=== PATIENT | female | born 1940 | race Caucasian/White ===

== ENCOUNTER 2017-12-07 04:49 | Inpatient (IN) | payer MEDICARE, OTHER ==
[~2017-12-07] VITALS: Ht 165.1 cm; Wt 78.9 kg
[2017-12-07 04:49] VITALS: BP 126/62
[2017-12-07] MEDS ORDERED: ASPIR 8181 MG PO (04:56)
[2017-12-07] MEDS ORDERED: ZESTRIL10 MG PO (04:56)
[2017-12-07 05:17] LABS: ABSOLUTE LYMPHOCYTES 0.9 thou/uL (0.8-5.3); ABSOLUTE MONOCYTES 0.2 thou/uL (0.0-1.2); ABSOLUTE NEUTROPHILS 3.7 thou/uL (1.6-8.1); BASOPHILS 0.7 %; EOSINOPHILS 0.4 %; HEMOGLOBIN 7.7 gm/dL (12.0-15.0); LYMPHOCYTES 18.2 %; MCH 31.1 pg (26.0-34.0); MCHC 33.6 g/dL (28.0-37.0); MCV 92.4 fL (80.0-100.0); MPV 7.4 fl. (7.2-11.1); NUCLEATED RBCS 0 /100WBC; PLATELET COUNT* 176 thou/uL (150-400); POLYS 75.7 %; RBC 2.49 mil/uL (4.20-5.00); RDW-CV 13.1 % (10.5-14.5); WBC 4.8 thou/uL (4.0-11.0)
[2017-12-07 05:27] LABS: ANION GAP 6 mmol/L (7-16); BUN 28 mg/dL (7-18); CALCIUM 7.6 mg/dL (8.5-10.1); CHLORIDE 111 mmol/L (98-107); CO2 26 mmol/L (21-32); CREATININE 0.9 mg/dL (0.6-1.3); GLUCOSE 112 mg/dL (70-99); SODIUM 143 mmol/L (136-145)
[2017-12-07 05:34] LABS: ALBUMIN 2.2 g/dL (3.4-5.0); ALKALINE PHOSPHATASE 46 U/L (46-116); SGOT 15 U/L (15-37); SGPT 13 U/L (30-65); TOTAL BILIRUBIN 0.2 mg/dL (<0.1-1.0); TOTAL PROTEIN 4.6 g/dL (6.4-8.2); TROPONIN-I LEVEL <0.06 ng/mL (<0.06)
[2017-12-07 06:10] LABS: URINE BILIRUBIN NEGATIVE (Negative); URINE BLOOD 3+ (Negative); URINE CLARITY CLEAR; URINE COLOR YELLOW; URINE GLUCOSE-RANDOM NEGATIVE (Negative); URINE KETONES NEGATIVE (Negative); URINE LEUKOCYTES-REFLEX 1+ (Negative); URINE NITRITE-REFLEX NEGATIVE (Negative); URINE PROTEIN NEGATIVE (Negative); URINE UROBILINOGEN 0.2 E.U./dl (0.2-1.0)
[2017-12-07 06:22] LABS: SQUAMOUS 0-3 Few /LPF (0-3)
[2017-12-07 06:23] LABS: BACTERIA-REFLEX >30 Many /HPF (None Seen); CASTS None Seen /LPF (None Seen); CRYSTALS None Seen /LPF (None Seen); MUCUS 0-3 Light strn/LPF (None Seen); TRANSITIONAL EPITHEL CELL 0-3 Few /LPF (None Seen); URINE RBC 0-2 Rare /HPF (0-2); URINE WBC-REFLEX 6-15 Few /HPF (0-5)
[2017-12-07 08:03] VITALS: BP 123/57
[2017-12-07 11:34] VITALS: BP 123/57
[2017-12-07 11:38] LABS: % SATURATION 22 % (20-39); IRON 48 ug/dL (50-175)
--- NOTE | 2017-12-07 12:11 | EKG ---
[place] [address] ELECTROCARDIOGRAM REPORT Name: SANTY ELLSWORTH Room: [place] [address] ADM IN .R.#: [id number] Admission: 12/07/17 Attend Phys: Cinthya Victor MD Discharge: Date of : 44 Report #: [id number] THIS REPORT FOR: //name// [facility] ED Test Date: 2017-12-07 Test Time: 04:55:44 Pat Name: SANTY ELLSWORTH Department: Room: Gender: F Private Watchman: : 1940 Requested By: Digna Spears Order Number: [id number] MD: James Salazar Measurements Intervals [place] Rate: 74 P: 52 IN: 117 QRS: -13 QRSD: 80 T: 37 QT: 375 QTc: 416 Interpretive Statements Sinus rhythm nonspecific st changes Borderline short IN interval Probable left atrial enlargement consider Inferior infarct, old No previous ECG available for comparison Electronically Signed On 12-07-2017 12:11:13 CDT by James Salazar [email or web address] <ELECTRONICALLY SIGNED> By: James Salazar MD, [facility] 12/07/17 1211 0455 0455 James Salazar MD, [facility] /EPI
[2017-12-07 15:51] VITALS: BP 147/51
[2017-12-07 20:00] VITALS: BP 127/60
[2017-12-08] VITALS (7 sets, daily range): BP systolic 126–160; BP diastolic 61–77
[2017-12-08 05:07] LABS: ABSOLUTE LYMPHOCYTES 1.2 thou/uL (0.8-5.3); ABSOLUTE MONOCYTES 0.2 thou/uL (0.0-1.2); ABSOLUTE NEUTROPHILS 2.9 thou/uL (1.6-8.1); BASOPHILS 0.7 %; EOSINOPHILS 0.5 %; HEMATOCRIT 21.8 % (37.0-47.0); HEMOGLOBIN 7.4 gm/dL (12.0-15.0); LYMPHOCYTES 26.9 %; MCH 31.6 pg (26.0-34.0); MCHC 34.2 g/dL (28.0-37.0); MCV 92.4 fL (80.0-100.0); MPV 7.9 fl. (7.2-11.1); NUCLEATED RBCS 0 /100WBC; PLATELET COUNT* 191 thou/uL (150-400); POLYS 66.9 %; RBC 2.35 mil/uL (4.20-5.00); WBC 4.3 thou/uL (4.0-11.0)
[2017-12-08 05:23] LABS: CALCIUM 8.2 mg/dL (8.5-10.1); CREATININE 0.9 mg/dL (0.6-1.3); POTASSIUM 3.9 mmol/L (3.5-5.1)
[2017-12-08] MEDS ORDERED: PROTONIX40 M1 PO (14:28)
[2017-12-08] MEDS ORDERED: CARAFATE 1 GM TA1 G1 PO (14:29)
[2017-12-08 16:38] LABS: HEMOGLOBIN 9.5 gm/dL (12.0-15.0)
--- NOTE | 2017-12-11 16:18 | CON ---
[address] [address] CONSULTATION Name: SANTY ELLSWORTH Room: [address] IN M.R.#: [id number] Admission: 12/07/17 Attend Phys: Cinthya Victor MD Discharge: 12/08/17 Date of : 44 Report #: [id number] THIS REPORT FOR: //name// CC: Michael Victor DICTATED BY: Liya Steve [facility] DATE OF SERVICE: 12/07/2017 Please note at the time of this dictation, the patient was seen and physically examined by myself. REASON FOR CONSULTATION: Nausea, vomiting, hematemesis. HISTORY OF PRESENT ILLNESS: This 77-year-old female who presented to the Emergency Room after being outside yesterday mowing. She had a semi-syncopal episode and she has had visual spotting at that time. This morning, when she got up to go to the bathroom, she had another syncopal episode and she was found lying on the floor. Upon their arrival, she was very pale, diaphoretic, and weak. At that time she had epistaxis of which she was unaware of. She also had nausea and vomiting and in the trash can was noted to have bright red blood. The patient does not recall much of this. The patient states she has not had any issues with nausea, vomiting, fever or chills until this episode this morning of nausea and vomiting. She denies any loss of appetite. She has never been told she is anemic. She has never had an upper scope or any issues with difficulty swallowing or acid reflux. She denies any abdominal pain. She states her bowels move daily, soft and formed. She has not noticed any bright red blood or any melena. The patient states she did have a colonoscopy 30+ years ago and it was completely normal. ALLERGIES: No known drug allergies. MEDICATIONS: From home, she takes an aspirin daily and lisinopril. PAST MEDICAL HISTORY: Hypertension. PAST SURGICAL HISTORY: Negative. FAMILY HISTORY: Negative for any GI or female cancers. SOCIAL HISTORY: Denies any alcohol, tobacco or illegal drug use. REVIEW OF SYSTEMS: Twelve-point review of systems is essentially negative except what is [place] [address] CONSULTATION Name: SANTY ELLSWORTH Room: [address] IN [facility].#: [id number] Admission: 12/07/17 Attend Phys: Cinthya Victor MD Discharge: 12/08/17 Date of : 44 Report #: [id number] PHYSICAL EXAMINATION: VITAL SIGNS: Temperature 36.3, pulse 73, respirations 16, blood pressure 123/57. HEART: Regular rate and rhythm. LUNGS: Clear. ABDOMEN: Soft, positive bowel sounds in all 4 quadrants with no masses or tenderness noted. NEUROLOGIC: The patient is alert and oriented x 3. LABORATORY DATA: Hemoglobin on admission was 7.7, hematocrit 23, white count is 4.8, platelets 176. Sodium 143, potassium 4, chloride 111, CO2 of 26, BUN is 28, creatinine 0.9, glucose is 112 and her GFR is 61. Her LFTs are completely normal. It was also noted that she had 3+ blood in her urine. Please note also we have no baseline as to what her hemoglobin has been, but she denies ever being anemic. IMPRESSION: 1. Nausea and vomiting that has resolved. 2. Hematemesis, none since admission. 3. Acute anemia. PLAN: 1. EGD today with Dr. Rios. 2. Last colon was 30 years ago. 3. The patient will need a colonoscopy to evaluate her anemia further. 4. Labs, ferritin, iron studies and B12 with a CBC in the a.m. 5. Further recommendations to be made once the EGD has been performed. Thank you for allowing us to participate in this patient's care. Please do not hesitate to call with any questions in regard to this consult. ADDENDUM I have personally seen and examined and reviewed labs and imaging studies. The patient with no previous history of anemia, who presents with acute hematemesis and anemia with hemoglobin of 7.5. She is hemodynamically stable. She reports that hematemesis was after having several bouts of nausea and vomiting. She denies taking any blood thinners except aspirin. She also reports that she never had upper endoscopy and her last colonoscopy was about 30 years ago. We will go ahead and perform an upper endoscopy to further evaluate her anemia and recent history of hematemesis. The patient [place] [address] CONSULTATION Name: SANTY ELLSWORTH Link Room: [address] IN [facility]#: [id number] Admission: 12/07/17 Attend Phys: Cinthya Victor MD Discharge: 12/08/17 Date of : 44 Report #: [id number] point. We will make further recommendation once the endoscopic evaluation is complete. <ELECTRONICALLY SIGNED> By: Stephon Rios MD 12/11/17 1618 1101 [id number] Rios MD /nt
--- NOTE | 2017-12-11 16:18 | CON ---
[address] [address] CONSULTATION Name: SANTY ELLSWORTH Room: [address] IN M.R.#: [id number] Admission: 12/07/17 Attend Phys: Cinthya Victor MD Discharge: 12/08/17 Date of : 44 Report #: [id number] THIS REPORT FOR: //name// CC: Michael Victor DATE OF SERVICE: 12/07/2017 ADDENDUM I have personally seen and examined and reviewed labs and imaging studies. The patient with no previous history of anemia, who presents with acute hematemesis and anemia with hemoglobin of 7.5. She is hemodynamically stable. She reports that hematemesis was after having several bouts of nausea and vomiting. She denies taking any blood thinners except aspirin. She also reports that she never had upper endoscopy and her last colonoscopy was about 30 years ago. We will go ahead and perform an upper endoscopy to further evaluate her anemia and recent history of hematemesis. The patient will need a colonoscopy at some point. We will make further recommendation once the endoscopic evaluation is complete. <ELECTRONICALLY SIGNED> By: Setphon Rios MD 12/11/17 1618 1329 [id number] Rios MD /nt
--- NOTE | 2017-12-11 16:18 | PROC ---
[address] [address] PROCEDURE REPORT Name: SANTY ELLSWORTH Room: [address] IN M.R.#: [id number] Admission: 12/07/17 Attend Phys: Cinthya Victor MD Discharge: 12/08/17 Date of : 42 Report #: [id number] THIS REPORT FOR: //name// CC: Michael Victor DATE OF SERVICE: 12/07/2017 PROCEDURE PERFORMED: EGD with biopsy. INDICATION FOR PROCEDURE: Hematemesis. The patient also is anemic with hemoglobin of 7.5. PHYSICAL EXAMINATION: VITAL SIGNS: Reveals normal vitals. LUNGS: Clear. CARDIOVASCULAR: Regular. ABDOMEN: Soft and mildly tender to palpation in the epigastric region. Bowel sounds are positive. DESCRIPTION OF PROCEDURE: An informed consent was obtained from the patient including the nature, risks, benefits and alternatives described. The patient was placed in the left lateral decubitus position with oximetry, blood pressure and cardiac monitoring. IV sedation was titrated with medication to effect. The [employer] video upper endoscope was then advanced under direct vision into the esophagus, which appeared completely normal. There was no evidence of esophagitis, rings, webs or strictures. No evidence for Miller's mucosa was noted. The stomach was then entered, insufflated and examined in its entirety and revealed a normal-appearing antrum and body as well as the cardia and fundus on retroflex examination. There was small to moderate sized hiatal hernia. The pylorus was widely patent, revealing a normal duodenal bulb and distal duodenum. 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 The edges of the ulcer were biopsied to rule out dysplasia. Scope and air were then withdrawn, and the patient was sent to the recovery room in stable condition. Thank you for allowing me to participate in the care of this patient. IMPRESSION: 1. Hiatal hernia, small to moderate. 2. Submucosal lesion measuring 2 cm, which is ulcerated and is in the proximal greater curvature of the body of the stomach. The [place] [address] PROCEDURE REPORT Name: SANTY ELLSWORTH Room: [address] [facility] IN .R.#: [id number] Admission: 12/07/17 Attend Phys: Cinthya Victor MD Discharge: 12/08/17 Date of : 44 Report #: [id number] RECOMMENDATION: We will follow up biopsy results and schedule the patient for endoscopic ultrasound. Meanwhile, we will put her on double dose of Carafate and Protonix. <ELECTRONICALLY SIGNED> By: Stephon Rios MD 12/11/17 1618 1416 0036Clintonid Jaden Rios MD /nt
--- NOTE | 2017-12-12 14:13 | CON ---
[address] [address] CONSULTATION Name: SANTY ELLSWORTH Room: [address] IN M.R.#: [id number] Admission: 12/07/17 Attend Phys: Cinthya Victor MD Discharge: 12/08/17 Date of : 42 Report #: [id number] THIS REPORT FOR: //name// CC: Michael Victor DATE OF SERVICE: 12/07/2017 HISTORY OF PRESENT ILLNESS: The patient is a 77-year-old white female who I was asked to see in the hospital today after she had a lightheaded spell. As you recall, patient has no history of heart disease. She recently was noted to have high blood pressure. Dr. Gaston in August started her on metoprolol and aspirin a day. However, she complained of fatigue. She also had occasional chest pain. She saw my partner, Dr. Leblanc, in the cardiology clinic. He recommended a nuclear stress test that was done in September. This showed an inferior defect suggesting diaphragmatic attenuation. Ejection fraction 70%. This was felt to be low risk for cardiac events. Dr. Leblanc switched her from metoprolol to lisinopril because of fatigue. The patient says she has done well since that time. Yesterday, she mowed the entire yard and did some weeding. This morning, she got up to go to the bathroom about 4:00 in the morning. She felt lightheaded and fell to the ground. She vomited blood. She was brought by ambulance here to [place]. She is noted to be anemic. She underwent an EGD that apparently showed evidence of a tumor. She has now been told that she has to have the tumor resected. She denies any history of chest tightness, dyspnea on exertion, palpitations, edema. She has had no recent fever. PAST MEDICAL HISTORY: Otherwise significant for tonsillectomy. She has a history of hypertension, no history of diabetes, hyperlipidemia. MEDICATIONS: Include lisinopril. ALLERGIES: She has no known drug allergies. FAMILY HISTORY: Negative for heart disease. SOCIAL HISTORY: She is . She and her live in [place], [place]. No smoking or alcohol abuse. REVIEW OF SYSTEMS: She has had no history of stroke, asthma, peptic ulcer disease, liver disease, kidney disease, cancer, psychiatric illness, chronic skin condition. PHYSICAL EXAMINATION: GENERAL: Revealed an elderly female lying in bed. She appeared in no distress. VITAL SIGNS: She had a blood pressure of 130/60, pulse 70. [place] [address] CONSULTATION Name: SANTY ELLSWORTH Room: [address] IN M..#: [id number] Admission: 12/07/17 Attend Phys: Cinthya Victor MD Discharge: 12/08/17 Date of : 42 Report #: [id number] HEENT: She was anicteric, conjunctiva pale. Mucous membranes are dry. NECK: Veins nondistended. No carotid bruits. Neck is supple. CHEST: Clear to auscultation. CARDIOVASCULAR: Regular rate and rhythm. No significant murmur. ABDOMEN: Soft. EXTREMITIES: Had no edema. Posterior tibial pulse 2+ bilaterally. SKIN: Warm, dry. NEUROLOGIC: Nonfocal. RADIOLOGICAL DATA: ECG shows a sinus rhythm with nonspecific ST-segment changes. Her workup in the Emergency Room today she had CT scan of the head performed when she presented, that showed no acute abnormality. LABORATORY DATA: Sodium 143, creatinine 0.9, alkaline phosphatase 46, albumin is 2.2. Troponin 0.06. White blood cell count 4.8, hemoglobin 7.7 with hematocrit of 23. IMPRESSION AND RECOMMENDATIONS: 1. Lightheaded spell, suspect secondary to anemia. Recommend no further cardiac evaluation. 2. Hypertension. The patient has been on PRAVIN inhibitor. 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 <ELECTRONICALLY SIGNED> By: James Salazar MD, FACC 12/12/17 1413 1651 [id number] Salazar MD, FACC /nt
== END 2017-12-08 17:13 | disposition home or self-care (01) | DRG 811 ==
LOC: M.ERS 04:49 → M.TBA-ER 06:14 → M.2W 07:59
PROVIDERS: Internal Medicine; Nurse Practitioner Adult Health; Personal Emergency Response Attendant; ADMIT Internal Medicine
PROC: 30233N1 Transfusion of Nonautologous Red Blood Cells into Peripheral Vein, Percutaneous Approach (ICD-10-PCS; principal; 2017-12-07)
PROC: 0DB68ZX Excision of Stomach, Via Natural or Artificial Opening Endoscopic, Diagnostic (ICD-10-PCS; 2017-12-07)
DX: D62 Acute posthemorrhagic anemia (principal); K29.71 Gastritis, unspecified, with bleeding; K25.4 Chronic or unspecified gastric ulcer with hemorrhage; C49.A2 Gastrointestinal stromal tumor of stomach; K92.0 Hematemesis; E44.0 Moderate protein-calorie malnutrition; I10 Essential (primary) hypertension; E11.9 Type 2 diabetes mellitus without complications; E78.5 Hyperlipidemia, unspecified; K44.9 Diaphragmatic hernia without obstruction or gangrene; K20.9 Esophagitis, unspecified; E86.9 Volume depletion, unspecified; E86.0 Dehydration; Z79.82 Long term (current) use of aspirin; T67.5XXA Heat exhaustion, unspecified, initial encounter; Z79.899 Other long term (current) drug therapy; X58.XXXA Exposure to other specified factors, initial encounter; Y93.89 Activity, other specified; Y92.89 Other specified places as the place of occurrence of the external cause; Y99.8 Other external cause status

== ENCOUNTER → 2017-12-13 | Outpatient (CLI) | payer MEDICARE, OTHER ==
[~2017-12-13] MED LIST: ASPIR 8181 MG PO; CARAFATE 1 GM TA1 G1 PO; PROTONIX40 M1 PO; ZESTRIL10 MG PO
== END ==
LOC: M.ULTRA 10:00
DX: I82.413 Acute embolism and thrombosis of femoral vein, bilateral (principal)

== ENCOUNTER 2018-06-09 22:48 | Emergency (ER) | payer MEDICARE, OTHER ==
[~2018-06-09] VITALS: Ht 165.1 cm; Wt 78.5 kg
[2018-06-09 23:34] LABS: ABSOLUTE LYMPHOCYTES 1.3 thou/uL (0.8-5.3); ABSOLUTE MONOCYTES 0.3 thou/uL (0.0-1.2); ABSOLUTE NEUTROPHILS 3.5 thou/uL (1.6-8.1); BASOPHILS 0.9 %; EOSINOPHILS 0.3 %; HEMATOCRIT 43.1 % (37.0-47.0); HEMOGLOBIN 14.6 gm/dL (12.0-15.0); LYMPHOCYTES 24.6 %; MCH 30.5 pg (26.0-34.0); MCHC 33.8 g/dL (28.0-37.0); MCV 90.4 fL (80.0-100.0); MONOCYTES 6.2 %; MPV 7.6 fl. (7.2-11.1); NUCLEATED RBCS 0 /100WBC; PLATELET COUNT* 170 thou/uL (150-400); RBC 4.77 mil/uL (4.20-5.00); RDW-CV 14.7 % (10.5-14.5); WBC 5.1 thou/uL (4.0-11.0)
[2018-06-09 23:43] LABS: ANION GAP 8 mmol/L (7-16); BUN 16 mg/dL (7-18); CALCIUM 9.5 mg/dL (8.5-10.1); CHLORIDE 105 mmol/L (98-107); CO2 29 mmol/L (21-32); GLUCOSE 104 mg/dL (70-99); POTASSIUM 4.1 mmol/L (3.5-5.1); SODIUM 142 mmol/L (136-145)
[2018-06-09 23:53] LABS: ALBUMIN 3.8 g/dL (3.4-5.0); ALKALINE PHOSPHATASE 83 U/L (46-116); SGOT 16 U/L (15-37); SGPT 14 U/L (30-65); TOTAL BILIRUBIN 0.5 mg/dL (<0.1-1.0); TOTAL PROTEIN 7.2 g/dL (6.4-8.2); TROPONIN-I LEVEL <0.06 ng/mL (<0.06)
[2018-06-10 01:45] VITALS: BP 110/53
--- NOTE | 2018-06-10 11:10 | EKG ---
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 : 1940 Requested By: Digna Spears Order Number: [id number] MD: Reed Leblanc Measurements Intervals [place] Rate: 71 P: 54 ID: 152 QRS: -3 QRSD: 82 T: 37 QT: 420 QTc: 457 Interpretive Statements Sinus rhythm Minimal ST depression, anterolateral leads Compared to ECG 12/07/2017 04:55:44 Myocardial infarct finding no longer present ST (T wave) deviation still present Electronically Signed On 06-10-2018 11:10:34 SHIPPING CHECKER by Reed Leblanc [email or web address] <ELECTRONICALLY SIGNED> By: Reed Leblanc MD, FACC 06/10/18 1110 2358 2358 Reed Leblanc MD, [facility] /EPI
== END 2018-06-10 01:45 | disposition home or self-care (01) ==
LOC: M.ERS 22:48
PROVIDERS: Personal Emergency Response Attendant
DX: I16.0 Hypertensive urgency (principal); I10 Essential (primary) hypertension

== ENCOUNTER → 2018-08-13 | Outpatient (CLI) | payer MEDICARE, OTHER ==
--- NOTE | 2018-08-13 13:43 | 2DMMODE ---
[place] [address] 2 D/M-MODE ECHOCARDIOGRAM Name: SNATY ELLSWORTH Room: [facility]#: [id number] Admission: 08/13/18 Attend Phys: Lori Scherer Discharge: Date of : 44 Date of Service: 08/13/18 1342 Report #: [id number] THIS REPORT FOR: //name// APPROVED REPORT Study performed: 08/13/2018 12:56:49 EXAM: Comprehensive 2D, Doppler, and color-flow Echocardiogram Patient Location: Out-Patient Status: routine BSA: 1.85 HR: 74 bpm BP: 120/72 mmHg Other Information Study Quality: Good Indications Chest Pain 2D Dimensions IVSd: 10.52 (7-11mm) LVOT Diam: 20.49 (18-24mm) LVDd: 43.17 mm PWd: 9.70 (7-11mm) Ascending Ao: 31.13 (22-36mm) LVDs: 27.80 (25-40mm) Aortic Root: 26.31 mm Volumes Left Atrial Volume (Systole) LA ESV Index: 15.40 mL/m2 Aortic Valve AoV Peak Marcellus.: 1.09 m/s AO Peak Gr.: 4.79 mmHg LVOT Max P.97 mmHg AO Mean Gr.: 2.46 mmHg LVOT Mean P.56 mmHg LVOT Max V: 0.86 m/s AO V2 VTI: 28.43 cm LVOT Mean V: 0.58 m/s GABE (VTI): 2.95 cm2 LVOT V1 VTI: 25.47 cm AI Spink: 1.14 m/s2 AI PHT: 517.72 ms Mitral Valve E/A Ratio: 0.65 MV Decel. Time: 209.27 [place] [address] 2 D/M-MODE ECHOCARDIOGRAM Name: SANTY ELLSWORTH Room: [facility]#: [id number] Admission: 08/13/18 Attend Phys: Lori Scherer Discharge: Date of : 44 Date of Service: 08/13/18 1342 Report #: [id number] MV E Max Marcellus.: 0.66 m/s MV PHT: 60.69 ms MVA (PHT): 3.63 cm2 TDI E/Lateral E': 6.60 E/Medial E': 8.25 Medial E' Marcellus.: 0.08 m/s Lateral E' Marcellus.: 0.10 m/s Pulmonary Valve PV Peak Marcellus.: 0.71 m/s PV Peak Gr.: 1.99 mmHg Left Ventricle The left ventricle is normal size. There is normal LV segmental wall motion. There is normal left ventricular wall thickness. Left ventricular systolic function is normal. The left ventricular ejection fraction is within the normal range. LVEF is 55-60%. Grade I - abnormal relaxation pattern. Right Ventricle The right ventricle is normal size. The right ventricular systolic function is normal. Atria The left atrium size is normal. The right atrium size is normal. Aortic Valve Mild aortic valve sclerosis. Trace aortic regurgitation. There is no aortic valvular stenosis. Mitral Valve The mitral valve is normal in structure. There is no mitral valve regurgitation noted. No evidence of mitral valve stenosis. Tricuspid Valve The tricuspid valve is normal in structure. There is no tricuspid valve regurgitation noted. Pulmonic Valve The pulmonary valve is normal in structure. There is no pulmonic valvular regurgitation. Great Vessels The aortic root is normal in size. IVC is normal in size and collapses >50% [place] [address] 2 D/M-MODE ECHOCARDIOGRAM Name: SANTY ELLSWORTH Room: [facility]#: [id number] Admission: 08/13/18 Attend Phys: Lori Scherer Discharge: Date of : 44 Date of Service: 08/13/18 1342 Report #: [id number] Pericardium There is no pericardial effusion. <Conclusion> The left ventricle is normal size. There is normal left ventricular wall thickness. Left ventricular systolic function is normal. The left ventricular ejection fraction is within the normal range. LVEF is 55-60%. Grade I - abnormal relaxation pattern. The right ventricle is normal size. The left atrium size is normal. Mild aortic valve sclerosis. Trace aortic regurgitation. There is no aortic valvular stenosis. The mitral valve is normal in structure. The tricuspid valve is normal in structure. IVC is normal in size and collapses >50% with inspiration. There is no pericardial effusion. There is normal LV segmental wall motion. <ELECTRONICALLY SIGNED> By: Dilip Noel MD, FACC 08/13/18 1342 1342 134 Dilip Noel MD, FACC /INF
--- NOTE | 2018-08-13 17:07 | CARDNUC ---
[place] [address] CARDIAC NUCLEAR IMAGING REPORT Name: SANTY ELLSWORTH Room: [facility]#: [id number] Admission: 08/13/18 Attend Phys: Lori Scherer Discharge: Date of : 44 Date of Service: 08/13/18 1707 Report #: [id number] THIS REPORT FOR: //name// APPROVED REPORT Imaging Protocol: Stress Tc-99m/Rest Tc-99m 1 day Study performed: 08/13/2018 13:30:00 Indication: Heart flutters, irregularity. Patient Location: Out-Patient Stress Tech: Mikki Mcneill Stress Nurse: Betzy Briceno RN Ht: 5 ft 5 in Wt: 170 lbs BSA: 1.85 m2 BMI: 28.28 Medical History Medical History: Heart flutters, Fatigue, HTN, No history of CAD, Exercise intolerance. Medications: Lisinopril. Allergies: No known drug allergies Cardiac Risk Factors: Age, FHX of CAD, HTN. Previous Cardiac Procedures: None Pretest Chest Pain Characteristics: No chest pain Exercise History: Indeterminate Physical Disabilities: Exercise intolerance, weakness in legs. Meds Held (24 hrs): None Resting Data Rest SPECT myocardial perfusion imaging was performed in supine position 40 minutes following the intravenous injection of 9.8 mCi of Tc-99m Sestamibi. Time of rest injection: 13:45 The images were gated to evaluate regional wall motion and calculate left ventricular ejection fraction. Administration Route: IV Administration Site: Right AC Pharmacologic Stress Pharmacologic stress test was performed by injecting Regadenoson 0.4 mg IV push over 10-15 seconds immediately followed by the intravenous injection of 31.2 mCi of Tc-99m Sestamibi. Time of stress injection: 15:20 Administration Route: IV Administration Site: [place] [address] CARDIAC NUCLEAR IMAGING REPORT Name: SENGSANTYLANG ESCOBEDO Room: [facility]#: [id number] Admission: 08/13/18 Attend Phys: Lori Scherer Discharge: Date of : 44 Date of Service: 08/13/18 1707 Report #: [id number] Heart Rate at time of stress injection: 110 bpm. Gated Stress SPECT was performed 45 minutes after stress injection. The images were gated to evaluate regional wall motion and calculate left ventricular ejection fraction. Prone imaging was performed. Stress Test Details Stress Test: Pharmacologic stress was paired with low level exercise. Reason for pharmacologic stress test: Exercise intolerance, weakness in legs.. HR Max Heart Rate (APMHR): 144 bpm Resting HR: 72 bpm Target HR (85% APMHR): 122 bpm Max HR Achieved: 111 bpm % of APMHR: 77 Recovery HR: 94 bpm HR response to stress: Normal HR response to stress BP Resting BP: 169/100 mmHg Max BP: 139/79 mmHg Recovery BP: 134/75 mmHg BP response to stress: Normal blood pressure response to stress. ECG Resting ECG: Sinus Rhythm Stress ECG: Sinus Rhythm ST Change: Upsloping ST depression Maximum ST Deviation: 0.5 mm Recovery ECG: Sinus Rhythm Recovery ST Change: None Clinical Reason for Termination: Completed protocol Stress Symptoms: Leg Fatigue, Weakness, Dyspnea. Exercise duration: 3 min 59 sec Exercise capacity: 2.15 METs Nurse Comments 78 year old female presented with recent HX of chest/heart flutters, lightheadedness and hypertension . Patient tolerated a low/slow treadmill with Lexiscan. Recovery unremarkable. Patient was escorted by staff to Nuclear Medicine for images. Patient stable with [place] [address] CARDIAC NUCLEAR IMAGING REPORT Name: SANTY ELLSWORTH Room: [facility]#: [id number] Admission: 08/13/18 Attend Phys: Lori Scherer Discharge: Date of : 44 Date of Service: 08/13/18 1707 Report #: [id number] Stress ECG Conclusion mildly positive ecg Study Quality Study: Good Artifact: No artifact Study Data At rest, the left ventricular ejection fraction was 87%.. Post stress, the left ventricular ejection was 81%.. SSS: 0 SRS: 0 SDS: 0 TID = 1.06. Perfusion Review of rest data reveals normal perfusion, without perfusion defects.Imaging obtained following vasodilator stress demonstrate a similar, uniform uptake of tracer without defects. Prone imaging was normal. LVEDV is normal.No segental wall motion abnormality seen. Wall Motion normal all segments Nuclear Conclusion ECG Findings: positive for ischemia likely false positive Clinical Findings: negative for ischemia Nuclear Findings: negative for ischemia Exercise Capacity: not assessed Left Ventricular Function: normal Risk Study: low Negative perfusion nuclear stress test for ischemia or infarct. Low risk study. <Conclusion> mildly positive ecg <ELECTRONICALLY SIGNED> By: Reed Leblanc MD, FACC 08/13/181706 06 06 Reed Leblanc MD, FACC /INF
== END ==
LOC: M.CRD 07-10 08:15
DX: I49.8 Other specified cardiac arrhythmias (principal); R07.89 Other chest pain; I10 Essential (primary) hypertension; Z79.899 Other long term (current) drug therapy

== ENCOUNTER 2020-02-11 05:12 | Observation (INO) | payer MEDICARE, OTHER ==
[~2020-02-11] VITALS: Ht 165.1 cm; Wt 78.9 kg
[2020-02-11] VITALS (12 sets, daily range): BP systolic 84–208; BP diastolic 55–95
[2020-02-11 05:51] LABS: ABSOLUTE MONOCYTES 0.2 thou/uL (0.0-1.2); ABSOLUTE NEUTROPHILS 3.3 thou/uL (1.6-8.1); BASOPHILS 0.6 %; EOSINOPHILS 0.4 %; HEMATOCRIT 40.2 % (37.0-47.0); HEMOGLOBIN 14.2 gm/dL (12.0-15.0); LYMPHOCYTES 22.2 %; MCH 32.5 pg (26.0-34.0); MCHC 35.3 g/dL (28.0-37.0); MCV 92.1 fL (80.0-100.0); MONOCYTES 5.4 %; NUCLEATED RBCS 0 /100WBC; PLATELET COUNT* 170 thou/uL (150-400); POLYS 71.4 %; RBC 4.37 mil/uL (4.20-5.00); RDW-CV 14.6 % (10.5-14.5); WBC 4.6 thou/uL (4.0-11.0)
[2020-02-11 05:55] LABS: CALCIUM 8.6 mg/dL (8.5-10.1); CREATININE 1.1 mg/dL (0.6-1.3); POTASSIUM 3.8 mmol/L (3.5-5.1)
[2020-02-11 06:00] LABS: PROTIME 9.9 Seconds (9.20-11.50)
[2020-02-11 06:06] LABS: ALBUMIN 3.4 g/dL (3.4-5.0); MAGNESIUM 2.1 mg/dL (1.8-2.4); TOTAL BILIRUBIN 0.5 mg/dL (<0.1-1.0); TOTAL PROTEIN 6.6 g/dL (6.4-8.2)
[2020-02-11 06:36] LABS: URINE BILIRUBIN NEGATIVE (Negative); URINE BLOOD TRACE (Negative); URINE CLARITY CLEAR; URINE COLOR YELLOW; URINE GLUCOSE-RANDOM NEGATIVE (Negative); URINE KETONES NEGATIVE (Negative); URINE LEUKOCYTES-REFLEX 1+ (Negative); URINE NITRITE-REFLEX NEGATIVE (Negative); URINE PROTEIN NEGATIVE (Negative); URINE SPECIFIC GRAVITY <= 1.005 (1.005-1.030); URINE UROBILINOGEN 0.2 E.U./dl (0.2-1.0)
[2020-02-11 07:23] LABS: BACTERIA-REFLEX 1-9 Few /HPF (None Seen); CASTS None Seen /LPF (None Seen); CRYSTALS None Seen /LPF (None Seen); MUCUS None Seen strn/LPF (None Seen); RENAL EPITHELIAL CELLS 0-3 Few /LPF (None Seen); SQUAMOUS 4-10 Moderate /LPF (0-3); URINE RBC 0-2 Rare /HPF (0-2); URINE WBC-REFLEX 0-5 Rare /HPF (0-5)
--- NOTE | 2020-02-11 08:03 | NUR ---
SWAPNIL NOTIFIED UPON PT RETURN FROM CT. PT CONNECTED TO MONITOR
--- NOTE | 2020-02-11 13:21 | EKG ---
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 02/11/20 1320 0538 0538 Dilip Noel MD, [facility] /EPI
[2020-02-11 13:24] LABS: ALBUMIN 3.6 g/dL (3.4-5.0); CALCIUM 9.1 mg/dL (8.5-10.1); CREATININE 0.9 mg/dL (0.6-1.3); POTASSIUM 3.9 mmol/L (3.5-5.1); TOTAL BILIRUBIN 0.6 mg/dL (<0.1-1.0); TOTAL PROTEIN 6.9 g/dL (6.4-8.2)
--- NOTE | 2020-02-11 14:31 | 2DMMODE ---
[place] [address] 2 D/M-MODE ECHOCARDIOGRAM Name: SANTY ELLSWORTH Room: [address] ADM IN .R.#: [id number] Admission: 02/11/20 Attend Phys: Boni Callaway, Discharge: Date of : 44 Date of Service: 02/11/20 1431 Report #: [id number] THIS REPORT FOR: cc: Michael Gaston MD, Dean L. MD Holkins,Dilip Stanley MD [facility] ~ APPROVED REPORT Study performed: 02/11/2020 13:13:40 EXAM: Comprehensive 2D, Doppler, and color-flow Echocardiogram Patient Location: In-Patient Room #: [facility] Status: routine BSA: 1.84 HR: 68 bpm BP: 152/69 mmHg Rhythm: NSR Other Information Study Quality: Good Indications CVA/TIA Echo Enhancing Agent Indication: Rule out Shunt Agent(s) / Amount(s) Used: Agitated Saline 10 cc 2D Dimensions IVSd: 10.21 (7-11mm) LVOT Diam: 19.45 (18-24mm) LVDd: 43.38 mm PWd: 10.41 (7-11mm) Ascending Ao: 30.46 (22-36mm) LVDs: 26.50 (25-40mm) Aortic Root: 30.68 mm Volumes Left Atrial Volume (Systole) LA ESV Index: 20.10 mL/m2 Aortic Valve AoV Peak Marcellus.: 1.24 m/s AO Peak Gr.: 6.16 mmHg LVOT Max P.53 mmHg AO Mean Gr.: 2.99 mmHg LVOT Mean P.81 [place] [address] 2 D/M-MODE ECHOCARDIOGRAM Name: SANTY ELLSWORTH Room: [address] IN M.R.#: [id number] Admission: 02/11/20 Attend Phys: Boni Callaway, Discharge: Date of : 44 Date of Service: 02/11/20 1431 Report #: [id number] LVOT Max V: 1.28 m/s AO V2 VTI: 30.50 cm LVOT Mean V: 0.76 m/s GABE (VTI): 3.26 cm2 LVOT V1 VTI: 33.45 cm Mitral Valve E/A Ratio: 0.59 MV Decel. Time: 277.64 ms MV E Max Marcellus.: 0.64 m/s MV PHT: 80.52 ms MVA (PHT): 2.73 cm2 TDI E/Lateral E': 4.00 E/Medial E': 8.00 Medial E' Marcellus.: 0.08 m/s Lateral E' Marcellus.: 0.16 m/s Pulmonary Valve PV Peak Marcellus.: 0.78 m/s PV Peak Gr.: 2.45 mmHg Left Ventricle The left ventricle is normal size. There is normal LV segmental wall motion. There is normal left ventricular wall thickness. Left ventricular systolic function is normal. The left ventricular ejection fraction is within the normal range. LVEF is 60-65%. Grade I - abnormal relaxation pattern. Right Ventricle The right ventricle is normal size. The right ventricular systolic function is normal. Atria The left atrium size is normal. The interatrial septum is intact with no evidence for an atrial septal defect. The right atrium size is normal. Aortic Valve Mild aortic valve sclerosis. Trace aortic regurgitation. There is no aortic valvular stenosis. Mitral Valve The mitral valve is normal in structure. There is no mitral valve regurgitation noted. No evidence of mitral valve stenosis. Tricuspid Valve The tricuspid valve is normal in structure. Unable to assess PA pressure. [place] [address] 2 D/M-MODE ECHOCARDIOGRAM Name: SANTY ELLSWORTH Room: [address] IN M.R.#: [id number] Admission: 02/11/20 Attend Phys: Boni Callaway, Discharge: Date of : 44 Date of Service: 02/11/20 1431 Report #: [id number] Pulmonic Valve The pulmonary valve is normal in structure. There is no pulmonic valvular regurgitation. Great Vessels The aortic root is normal in size. IVC is normal in size and collapses >50% with inspiration. Pericardium There is no pericardial effusion. <Conclusion> The left ventricle is normal size. There is normal left ventricular wall thickness. Left ventricular systolic function is normal. The left ventricular ejection fraction is within the normal range. LVEF is 60-65%. Grade I - abnormal relaxation pattern. The right ventricle is normal size. The left atrium size is normal. Mild aortic valve sclerosis. Trace aortic regurgitation. There is no aortic valvular stenosis. The mitral valve is normal in structure. The tricuspid valve is normal in structure. IVC is normal in size and collapses >50% with inspiration. There is no pericardial effusion. There is normal LV segmental wall motion. The interatrial septum is intact with no evidence for an atrial septal defect. <ELECTRONICALLY SIGNED> By: Dilip Noel MD, FACC 02/11/20 1431 1431 1431 Dilip Noel MD, FACC /INF
--- NOTE | 2020-02-11 17:48 | NUR ---
PT REPORTS DIZZINESS INCREASED WITH STANDING. BP DECREASES WITH STANDING. NSR ON MONITOR. PT CALLS APPROPRIATELY FOR ASSIST TO BSC. AT BS AND UPDATED ON PLAN OF CARE
[2020-02-12 02:06] LABS: GLYCOHEMOGLOBIN (HGB A1C) 5.2 % (4.8-5.6)
[2020-02-12 03:45] VITALS: BP 138/69
--- NOTE | 2020-02-12 03:46 | CON ---
[address] [address] CONSULTATION Name: SANTY ELLSWORTH Room: [address] IN M.R.#: [id number] Admission: 02/11/20 Attend Phys: Boni Callaway MD Discharge: Date of : 44 Report #: [id number] THIS REPORT FOR: //name// cc: Michael Gaston MD, Dean L. MD ~ THIS REPORT FOR: //name// CC: Boni Gaston DATE OF SERVICE: 02/11/2020 HISTORY OF PRESENT ILLNESS: This is a 79-year-old female patient who was evaluated by me to determine any neurological etiology for the patient's dizziness. The patient indicates that she was dizzy. It was somewhat worse when she got up. Movement of the head did not produce much dizziness. It started spontaneously without any trauma. She has not had any prior episode of dizziness like this. REVIEW OF SYSTEMS: Positive for increased blood pressure when she came in. She does have a prior history of GI bleed. She had syncope like feeling. A 14-point review of system was carried out and she is not complaining of any new eye, ENT, cardiac, respiratory, GI, , musculoskeletal, constitutional, dermatological, hematological, psychiatric, throat, allergic symptom associated with present symptomatology. PAST MEDICAL HISTORY: Negative for this kind of dizziness. FAMILY HISTORY: Unremarkable. SOCIAL HISTORY: She does not smoke or drink alcohol. PHYSICAL EXAMINATION: NEUROLOGIC: Indicate she is alert, responsive, able to follow simple and complex command. Her speech, concentration, fund of knowledge and memory is at her baseline. Cranial nerve examination 2-12 looks unremarkable. She has symmetrical strength, sensation, reflexes and tone in all 4 extremities. There is no meningeal sign. There is no carotid bruit. There is no cerebellar sign. Pulses are palpable. She has no edema, cyanosis or jaundice. Hearing and vision is okay. No facial dysmorphic features. CARDIAC: Unremarkable. LUNGS: No respiratory difficulty or rhonchi. VITAL SIGNS: Blood pressure is 167/73, respirations 19, pulse is 64, and temperature is 97.7. LABORATORY DATA: Her white count is 4.5. Sodium is normal at 142[place] [address] CONSULTATION Name: SANTY ELLSWORTH Room: [address] IN [facility].#: [id number] Admission: 02/11/20 Attend Phys: Boni Callaway MD Discharge: Date of : 44 Report #: [id number] angio of the head and neck when she came in and that was unremarkable. IMPRESSION: It is unlikely that there is any neurological etiology for the patient's dizziness. It is most likely ENT pathology and I will suggest working up the systemic causes. I will suggest a PT consult and they can also evaluate for benign paroxysmal vertigo. I will get an MRI to complete the workup and if MRI is normal, then I do not think further neurological workup is needed and she should have a systemic workup as well as an ENT consult, which may have to be done as an outpatient because no ENT physicians come here. Thank you very much for this referral. <ELECTRONICALLY SIGNED> By: Gera Beverly MD 02/12/20 0346 [id number] Beverly MD /nt
[2020-02-12 04:33] LABS: HEMOGLOBIN 13.4 gm/dL (12.0-15.0); NUCLEATED RBCS 0 /100WBC; WBC 4.6 thou/uL (4.0-11.0)
[2020-02-12 04:35] LABS: ABSOLUTE LYMPHOCYTES 1.3 thou/uL (0.8-5.3); ABSOLUTE MONOCYTES 0.3 thou/uL (0.0-1.2); ABSOLUTE NEUTROPHILS 2.9 thou/uL (1.6-8.1); BASOPHILS 0.9 %; EOSINOPHILS 0.6 %; HEMATOCRIT 37.6 % (37.0-47.0); LYMPHOCYTES 28.9 %; MCH 32.9 pg (26.0-34.0); MCHC 35.5 g/dL (28.0-37.0); MCV 92.7 fL (80.0-100.0); MONOCYTES 6.4 %; MPV 7.8 fl. (7.2-11.1); PLATELET COUNT* 172 thou/uL (150-400); POLYS 63.2 %; RBC 4.06 mil/uL (4.20-5.00); RDW-CV 15.1 % (10.5-14.5)
[2020-02-12 05:00] LABS: CALCIUM 8.7 mg/dL (8.5-10.1); CREATININE 1.1 mg/dL (0.6-1.3)
[2020-02-12 05:10] LABS: CHOLESTEROL 136 mg/dL (<200); HDL CHOLESTEROL 54 mg/dL (>40); LDL CHOLESTEROL 68 mg/dL (<100); TC:HDL 2.5 Ratio (Not establshd); TRIGLYCERIDE 70 mg/dL (<150); VLDL 14 mg/dL (<40)
[2020-02-12 05:15] LABS: SERUM ASSESSMENT CLEAR
--- NOTE | 2020-02-12 07:30 | NUR ---
PT CARE ASSUMED AT 1930. SAT MAINTAINED IN RA. ORTHISTATS POSITIVE AND CHARTED. PT C/O DIZZINESS WHILE GETTING UP. DENIES PAIN AND SOB. CALL LIGHT WITHIN REACH AND BED IN LOW POSITION. HOURLY ROUNDING DONE FOR PT SAFETY.
[2020-02-12 07:57] VITALS: BP 161/75
--- NOTE | 2020-02-12 09:48 | NUR ---
CM SPOKE TO THE PT TO DISCUSS HER HOME SITUATION, DISCHARGE PLANNING, AND TO INFORM OF THE ROLE OF CM. PT A&O, INDEPENDENT WITH ADL'S, ACTIVE AND DRIVES. PT RESIDES AT HOME WITH SPOUSE. PT USES 0 DME. PT HAS 0 HX OF HH OR SNF. CM WILL REMAIN AVAILABLE TO ASSIST AND FOLLOW NEEDED.
[2020-02-12 12:20] VITALS: BP 157/79
--- NOTE | 2020-02-12 16:20 | NUR ---
pt asking to be discharged. pt states that neurology told her if she was cleared by therapy and mri was negative. asked that i page to see if he would discharge her.
[2020-02-12 16:34] VITALS: BP 157/79
[2020-02-12 16:45] VITALS: BP 157/79
--- NOTE | 2020-02-12 17:21 | NUR ---
PIV AND TELE WERE REMOVED. DISCHARGE INSTRUCTIONS WERE REVIEWED WITH PT. CHANGE TO OBSERVATION STATUS REVIEWED WITH PT. ALL QUESTIONS ANSWERED.
== END 2020-02-12 17:10 | disposition home or self-care (01) ==
LOC: M.ERS 05:12 → M.2W 08:33 → M.TBA-ER 08:33 → M.2W 08:33
PROVIDERS: Emergency Medicine; ADMIT Internal Medicine; ATTEND Internal Medicine
DX: Z03.818 Encounter for observation for suspected exposure to other biological agents ruled out (principal); I10 Essential (primary) hypertension; R42 Dizziness and giddiness; Z79.899 Other long term (current) drug therapy